=== PATIENT | male | born 1955 | race Caucasian/White ===

== ENCOUNTER 2025-04-04 13:40 | Outpatient (CLI) | payer BC, MEDICAID ==
[~2025-04-04 13:40] MED LIST: NO HOME MEDS
--- NOTE | 2025-04-04 15:44 | VASCULAR REPORT ---
INDICATION: smoking history TECHNIQUE: Multiple sonographic images of the abdominal aorta were obtained. COMPARISON: None FINDINGS: The aorta measures 1.7 cm. There is no evidence for atherosclerotic disease. There is no periaortic fluid. IMPRESSION: 1. No evidence for abdominal aortic aneurysm.
--- NOTE | 2025-04-05 11:59 | RADIOLOGY REPORT ---
Procedure: CT CT CHEST LOW DOSE Reason for study/Clinical History: SCREENING LUNG CA Comparison Study: None available at time of dictation. TECHNIQUE: Multidetector CT of the chest was performed from the lung apices to the upper abdomen with out the use of intravenous contract. Axial, coronal and sagittal multiplanar reformats were performed . Radiation Dose Information: CT Dose: CTDI volume is 2.8 mGy. Dose-length product is 110.5 mGy*cm The dose indicators for CT are the volume Computed Tomography (CT) Dose Index (CTDIvol) and the Dose Length Product (DLP), and are measured in units of mGy and mGy-cm, respectively. These indicators are not patient dose, but values generated from the CT scanner acquisition factors. The report includes radiation exposure data for exposures received during this examination. FINDINGS: Lower neck: Normal thyroid. Lungs: No focal consolidation. No suspicious pulmonary nodule. Severe centrilobular emphysema. Heart/Vascular Structures: Cardiomegaly. Coronary artery calcifications. Vascular calcifications of t he aorta. Ectasia of the ascending thoracic aorta measures 4.7 cm. Lymph Nodes: No adenopathy Pleura: No pleural effusion or significant pneumothorax. Musculoskeletal: No acute osseous abnormality. Soft tissues: Normal. Upper abdomen: Limited portions of the upper abdomen are unremarkable. IMPRESSION: No acute intrathoracic abnormality. LUNG RADS Category 1: Continue annual screening with LDCT
== END 2025-04-04 23:59 | disposition home or self-care (01) ==
LOC: RAD 13:40
PROVIDERS: ATTEND Student in an Organized Health Care Education/Training Program
DX: Z12.2 Encounter for screening for malignant neoplasm of respiratory organs (principal); I51.7 Cardiomegaly; Z13.6 Encounter for screening for cardiovascular disorders; Z87.891 Personal history of nicotine dependence; I25.10 Atherosclerotic heart disease of native coronary artery without angina pectoris; I77.811 Abdominal aortic ectasia
CPT/HCPCS: 71271; 93978